=== PATIENT | male | born 1955 | race Caucasian/White ===

== ENCOUNTER 2022-03-29 01:04 | Inpatient (IN) | payer MEDICARE ==
[2022-03-29] MEDS ORDERED: Ondansetron PF 4 MG/2 ML Vial IVP PRN (07:18)
[2022-03-29] MEDS ORDERED: Acetaminophen 325 MG TAB PO PRN (07:18)
[2022-03-29] MEDS ORDERED: Sodium Chloride 0.9% 1,000 ML IV SCH ×2 (07:30→07:55)
[2022-03-29] MEDS ORDERED: Dextrose 5% in Water 1,000 ML IV PRN (07:31)
[2022-03-29] MEDS ORDERED: Dextrose 50% Abboject 50 ML SYRINGE SLOW IVP PRN (07:31)
[2022-03-29] MEDS ORDERED: HumaLOG 300 UNITS/3 ML VIAL SC PRN ×3 (07:31→13:01)
[2022-03-29] MEDS ORDERED: Heparin 25,000 units/D5W 500 ML IVPB SCH (07:45)
[2022-03-29] MEDS ORDERED: Heparin 10,000 UNITS/ 10 ML VIAL SLOW IVP SCH (07:45)
[2022-03-29 08:07] LABS: #Eosinphils 0.1 thou/uL (0.0-0.7); #Lymphocytes 0.9 thou/uL (1.20-3.40); #Monocytes 1.1 thou/uL (0.11-0.59); #Neutrophils 6.4 thou/uL (1.40-6.50); %Basophils 0.4 % (0.0-1.0); %Lymphocytes 10.5 % (21.0-51.0); %Monocytes 12.6 % (0.0-10.0); %Neutrophils 75.6 % (42.0-75.0); Hemoglobin 12.8 g/dL (14.0-18.0); Mean Corpuscular HGB CONC 33.2 g/dL (32.0-36.0); Mean Corpuscular Hemoglobin 29.7 pg (27.0-31.0); Mean Corpuscular Volume 89.5 fl (78.0-98.0); Mean Platelet Volume 8.3 fL (7.4-10.4); Platelet Count 150 10x3/uL (130-400); RBC Distribution Width 12.3 % (11.5-14.5); Red Blood Cell (RBC) Count 4.31 mill/uL (4.70-6.10); White Blood Cell (WBC) Count 8.5 10x3/uL (4.8-10.8)
[2022-03-29] MEDS ORDERED: Heparin 25,000 units/D5W 500 ML IV SCH (08:15)
[2022-03-29 08:28] LABS: Anion Gap 15 mmol/L (10-20); BUN (Urea Nitrogen) 58 mg/dL (8.4-25.7); Calc. Creatinine Clearance 0 mL/min (70-130); Calcium 8.2 mg/dL (7.8-10.44); Carbon Dioxide 23 mmol/L (23-31); Chloride 99 mmol/L (98-107); Estimated GFR 36; Glucose 135 mg/dL (80-115); Potassium 3.6 mmol/L (3.5-5.1); Sodium 133 mmol/L (136-145)
[2022-03-29 08:33] LABS: ALT (SGPT) 29 U/L (8-55); AST (SGOT) 85 U/L (5-34); Albumin 2.9 g/dL (3.4-4.8); Alkaline Phosphatase 45 U/L (40-110); Bilirubin, Direct 0.5 mg/dL (0.1-0.3); Bilirubin, Total 3.2 mg/dL (0.2-1.2); Protein, Total 5.5 g/dL (5.8-8.1)
[2022-03-29 08:34] LABS: Hemoglobin 13.3 g/dL (14.0-18.0); Platelet Count 135 10x3/uL (130-400)
[2022-03-29] MEDS ORDERED: Nitroglycerin 50 MG/250 ML BOT 250 ML IVPB SCH (08:45)
[2022-03-29 08:46] LABS: Troponin I 24.418 ng/mL (< 0.028)
[2022-03-29] MEDS ORDERED: Doxycycline 100 MG in Sodium Chloride 0.9% 100 ML IVPB SCH (09:00)
[2022-03-29] MEDS ORDERED: Furosemide 20 MG/2 ML VIAL SLOW IVP SCH ×2 (09:00→15:00)
[2022-03-29 09:03] LABS: PTT 134.5 sec (22.9-36.1)
[2022-03-29] MEDS: Pantoprazole 40 MG VIAL IVP SCH (09:17)
[2022-03-29] MEDS: Aspirin 81 mg Enteric Coated Tablet PO SCH (09:17)
[2022-03-29 09:35] LABS: Bacteria/HPF None Seen HPF (None Seen); Bilirubin Negative (Negative); Blood, Urine 1+ (Negative); Clarity Clear (Clear); Glucose, Urine (Dipstick) Normal (Negative); Ketone, Urine 10 mg/dL (Negative); Leukocyte 25 Leu/uL (Negative); Nitrite Negative (Negative); Protein, Urine (Dipstick) 20 mg/dL (Neg-Trace); RBC/HPF 0-3 HPF (0-3); Specific Gravity, Urine 1.022 (1.002-1.036); Squamous Epithelial None Seen HPF (0-3); Urobilinogen Normal mg/dL (Less than 2); WBC/HPF 0-3 HPF (0-3)
[2022-03-29] MEDS: hydrALAZINE 25 MG TAB PO SCH ×4 (09:43→20:02)
[2022-03-29] MEDS: Carvedilol 25 MG TAB PO SCH ×3 (09:43→17:15)
[2022-03-29] MEDS: Lorazepam 0.5 MG TAB PO PRN ×2 (15:30→20:03)
[2022-03-29 17:06] LABS: Anion Gap 15 mmol/L (10-20); BUN (Urea Nitrogen) 65 mg/dL (8.4-25.7); Calc. Creatinine Clearance 42 mL/min (70-130); Calcium 8.1 mg/dL (7.8-10.44); Carbon Dioxide 21 mmol/L (23-31); Chloride 100 mmol/L (98-107); Estimated GFR 37; Glucose 171 mg/dL (80-115); Potassium 3.5 mmol/L (3.5-5.1); Sodium 132 mmol/L (136-145)
[2022-03-29 17:22] LABS: Troponin I 22.442 ng/mL (< 0.028)
[2022-03-29] MEDS ORDERED: Carvedilol 25 MG TAB PO SCH (17:30)
[2022-03-29] MEDS: Sodium Chloride 0.9% 1,000 ML IV SCH (18:16)
[2022-03-29] MEDS: Cefepime 2 GM in Sodium Chloride 0.9% 100 ML IVPB SCH (20:03)
[2022-03-29] MEDS ORDERED: Insulin Glargine 30 UNITS/0.3 ML VIAL SC SCH ×2 (21:00)
[2022-03-29] MEDS ORDERED: Rosuvastatin 20 MG TAB PO SCH (21:00)
[2022-03-29] MEDS: Morphine 4 MG/ML VIAL SLOW IVP PRN (23:54)
[2022-03-30] MEDS: Lorazepam 0.5 MG TAB PO PRN ×2 (02:36→08:27)
[2022-03-30] MEDS: Sodium Chloride 0.9% 1,000 ML IV SCH ×2 (03:26→17:35)
[2022-03-30] MEDS: Morphine 4 MG/ML VIAL SLOW IVP PRN ×3 (04:12→16:51)
[2022-03-30 05:54] LABS: #Eosinphils 0.1 thou/uL (0.0-0.7); #Monocytes 0.9 thou/uL (0.11-0.59); #Neutrophils 5.4 thou/uL (1.40-6.50); %Basophils 0.1 % (0.0-1.0); %Eosinophils 1.8 % (0.0-10.0); %Lymphocytes 13.7 % (21.0-51.0); %Monocytes 12.1 % (0.0-10.0); %Neutrophils 72.3 % (42.0-75.0); Hemoglobin 12.2 g/dL (14.0-18.0); Mean Corpuscular HGB CONC 33.3 g/dL (32.0-36.0); Mean Corpuscular Hemoglobin 29.7 pg (27.0-31.0); Mean Corpuscular Volume 89.1 fl (78.0-98.0); Mean Platelet Volume 7.9 fL (7.4-10.4); Platelet Count 135 10x3/uL (130-400); RBC Distribution Width 12.4 % (11.5-14.5); Red Blood Cell (RBC) Count 4.12 mill/uL (4.70-6.10); White Blood Cell (WBC) Count 7.4 10x3/uL (4.8-10.8)
[2022-03-30 06:03] LABS: INR-International Normal Ratio 1.1; Prothrombin Time 15.1 sec (12.0-14.7)
[2022-03-30 06:05] LABS: PTT 100.3 sec (22.9-36.1)
[2022-03-30 06:15] LABS: ALT (SGPT) 23 U/L (8-55); AST (SGOT) 41 U/L (5-34); Albumin 2.7 g/dL (3.4-4.8); Alkaline Phosphatase 46 U/L (40-110); Anion Gap 12 mmol/L (10-20); BUN (Urea Nitrogen) 64 mg/dL (8.4-25.7); Bilirubin, Total 2.1 mg/dL (0.2-1.2); Calc. Creatinine Clearance 44 mL/min (70-130); Calcium 7.8 mg/dL (7.8-10.44); Carbon Dioxide 23 mmol/L (23-31); Chloride 101 mmol/L (98-107); Estimated GFR 39; Globulin 2.4 g/dL (2.4-3.5); Glucose 205 mg/dL (80-115); Potassium 3.6 mmol/L (3.5-5.1); Protein, Total 5.1 g/dL (5.8-8.1); Sodium 132 mmol/L (136-145)
[2022-03-30] MEDS ORDERED: Albumin 5% 500 ML ONE (07:33)
[2022-03-30] MEDS ORDERED: Carvedilol 25 MG TAB PO SCH (08:00)
[2022-03-30] MEDS: Cefepime 2 GM in Sodium Chloride 0.9% 100 ML IVPB SCH ×2 (08:22→20:32)
[2022-03-30] MEDS: Aspirin 81 mg Enteric Coated Tablet PO SCH (08:22)
[2022-03-30] MEDS: Pantoprazole 40 MG VIAL IVP SCH (08:24)
[2022-03-30] MEDS ORDERED: Heparin 10,000 UNITS/1 ML VIAL 30,000 UNITS in Sodium Chloride 0.9% 1,000 ML FS SCH (09:45)
[2022-03-30] MEDS: hydrALAZINE 25 MG TAB PO SCH ×2 (10:17→17:35)
[2022-03-30] MEDS ORDERED: Fentanyl 250 MCG/5 ML VIAL ONE (10:35)
[2022-03-30] MEDS ORDERED: Midazolam HCl 5 mg/5 ml Vial ONE (10:35)
[2022-03-30] MEDS ORDERED: Milrinone 10 MG/10 ML VIAL ONE (10:36)
[2022-03-30] MEDS ORDERED: Dexmedetomidine 200 MCG/2 ML VIAL ONE (10:36)
[2022-03-30] MEDS ORDERED: Vecuronium 10 MG VIAL ONE (11:06)
[2022-03-30] MEDS ORDERED: Cardioplegic Soln 1,000 ML BAG ONE (11:06)
[2022-03-30] MEDS ORDERED: Rocuronium Bromide 10 MG/ML (10ML VIAL) ONE (11:06)
[2022-03-30] MEDS ORDERED: Norepinephrine 4 MG/4 ML VIAL ONE (11:06)
[2022-03-30] MEDS ORDERED: Papaverine 60 MG/2 ML VIAL ONE (11:06)
[2022-03-30] MEDS ORDERED: Sodium Bicarb 50 MEQ/50 ML Abboject 8.4% SYRINGE ONE (11:06)
[2022-03-30] MEDS ORDERED: Heparin 5,000 UNITS/ML VIAL ONE (11:06)
[2022-03-30] MEDS ORDERED: Thrombin 5000 UNITS/5 ML VIAL ONE (11:06)
[2022-03-30] MEDS ORDERED: Albumin 25% 25 GM/100 ML BOT ONE (11:06)
[2022-03-30] MEDS ORDERED: Vancomycin 1 GM VIAL ONE (11:06)
[2022-03-30] MEDS ORDERED: Calcium Chloride 1 GM/10 ML Abboject SYRINGE ONE (11:06)
[2022-03-30] MEDS ORDERED: Aminocaproic Acid 5 GM/20 ML VIAL ONE (11:06)
[2022-03-30] MEDS ORDERED: Mannitol 12.5 GM/50 ML ONE (11:06)
[2022-03-30] MEDS ORDERED: Heparin 30,000 units/30 ml VIAL ONE (11:06)
[2022-03-30] MEDS ORDERED: Potassium Chloride 60 MEQ/30 ML VIAL ONE (11:06)
[2022-03-30] MEDS ORDERED: Lidocaine 2% PF 100 mg/5 ml Syringe ONE (11:06)
[2022-03-30] MEDS ORDERED: Lidocaine 1% PF 5 ML VIAL ONE (11:06)
[2022-03-30] MEDS ORDERED: Protamine Sulfate 250 MG/25 ML VIAL ONE (11:06)
[2022-03-30] MEDS ORDERED: Insulin Regular 300 UNITS/3 ML VIAL ONE (11:50)
[2022-03-30] MEDS ORDERED: PHENYLEPHRINE-NS 100 MCG/ML 10 ML SYRINGE ONE ×2 (12:28→13:23)
[2022-03-30] MEDS ORDERED: EPINEPHrine 1 MG/ML AMP ONE (13:25)
[2022-03-30 16:11] LABS: Hemoglobin 11.2 g/dL (14.0-18.0); Mean Corpuscular Hemoglobin 29.9 pg (27.0-31.0); Mean Corpuscular Volume 87.9 fl (78.0-98.0); Mean Platelet Volume 8.6 fL (7.4-10.4); Platelet Count 80 10x3/uL (130-400); RBC Distribution Width 12.4 % (11.5-14.5); Red Blood Cell (RBC) Count 3.75 mill/uL (4.70-6.10); White Blood Cell (WBC) Count 16.7 10x3/uL (4.8-10.8)
[2022-03-30 16:22] LABS: PTT 37.5 sec (22.9-36.1); Prothrombin Time 23.6 sec (12.0-14.7)
[2022-03-30 16:25] LABS: Band 21 % (5-11); Eosinophils 3 % (0-10); Lymphocytes 2 % (21-51); MDiff Complete? YES; Monocytes 6 % (0-10); Neutrophil 67 % (42-75); Platelet Morphology Comment Appears Decreased; Polychromasia SLIGHT = 2-3 cells (100X) (0-2/hpf)
[2022-03-30] MEDS ORDERED: NOREPINEPHRINE 8 MG/250 ML-D5W 250 ML ONE (16:38)
[2022-03-30] MEDS ORDERED: Nitroglycerin 50 MG/250 ML BOT 250 ML IVPB PRN (16:47)
[2022-03-30] MEDS ORDERED: niCARdipine 25 MG in Sodium Chloride 0.9% 250 ML 250 ML IVPB PRN (16:47)
[2022-03-30] MEDS ORDERED: Bisacodyl 5 MG TAB PO PRN (16:47)
[2022-03-30] MEDS ORDERED: Guaifenesin DM 100-10/5 ML UDCUP PO PRN (16:47)
[2022-03-30] MEDS ORDERED: Ventilator Sedation Protocol 1 EACH FS SCH (16:47)
[2022-03-30] MEDS ORDERED: Mag-Al 1200 mg/1200 mg/30 ML UDCUP PO PRN (16:47)
[2022-03-30] MEDS ORDERED: hydrALAZINE 20 MG/ML VIAL SLOW IVP PRN (16:47)
[2022-03-30] MEDS ORDERED: Acetaminophen 325 MG TAB PO PRN (16:47)
[2022-03-30] MEDS ORDERED: Hetastarch 6% 500 ML 500 ML IVPB PRN (16:47)
[2022-03-30] MEDS ORDERED: Ondansetron PF 4 MG/2 ML Vial IVP PRN (16:47)
[2022-03-30] MEDS ORDERED: NOREPINEPHRINE 8 MG/250 ML-D5W 250 ML IVPB PRN (16:47)
[2022-03-30] MEDS ORDERED: Post-Op Insulin Drip Protocol IVPB ONE (16:47)
[2022-03-30] MEDS ORDERED: Bisacodyl 10 MG SUPP PR PRN (16:47)
[2022-03-30] MEDS ORDERED: DOPamine 400 MG/D5W 250 ML 250 ML IVPB PRN (16:47)
[2022-03-30] MEDS ORDERED: Morphine 4 MG/ML VIAL ONE (16:49)
[2022-03-30 17:00] LABS: #Eosinphils 0.1 thou/uL (0.0-0.7); #Lymphocytes 1.4 thou/uL (1.20-3.40); #Monocytes 1.4 thou/uL (0.11-0.59); #Neutrophils 11.2 thou/uL (1.40-6.50); %Basophils 0.1 % (0.0-1.0); %Lymphocytes 9.7 % (21.0-51.0); %Monocytes 9.7 % (0.0-10.0); %Neutrophils 79.5 % (42.0-75.0); Hemoglobin 11.4 g/dL (14.0-18.0); Mean Corpuscular HGB CONC 33.7 g/dL (32.0-36.0); Mean Corpuscular Hemoglobin 29.5 pg (27.0-31.0); Mean Corpuscular Volume 87.6 fl (78.0-98.0); Mean Platelet Volume 8.7 fL (7.4-10.4); Platelet Count 81 10x3/uL (130-400); RBC Distribution Width 12.4 % (11.5-14.5); Red Blood Cell (RBC) Count 3.87 mill/uL (4.70-6.10); White Blood Cell (WBC) Count 14.1 10x3/uL (4.8-10.8)
[2022-03-30] MEDS ORDERED: Morphine 4 MG/ML VIAL SLOW IVP PRN (17:02)
[2022-03-30] MEDS ORDERED: Midazolam HCl 2 mg/2 ml Vial SLOW IVP PRN (17:05)
[2022-03-30 17:08] LABS: INR-International Normal Ratio 1.7; Prothrombin Time 20.9 sec (12.0-14.7)
[2022-03-30] MEDS ORDERED: Fentanyl CADD 100 ML IV SCH (17:15)
[2022-03-30] MEDS ORDERED: Fentanyl BOLUS 250 ML IVPB PRN (17:15)
[2022-03-30] MEDS ORDERED: Propofol BOLUS 1,000 MG/100 ML VIAL IV PRN (17:15)
[2022-03-30] MEDS ORDERED: HUMULIN R 100 UNITS in Sodium Chloride 0.9% 100 ML IVPB SCH (17:15)
[2022-03-30] MEDS ORDERED: Dextrose 50% Abboject 50 ML SYRINGE SLOW IVP PRN (17:15)
[2022-03-30] MEDS ORDERED: Dextrose 5% in Water 1,000 ML IV PRN (17:15)
[2022-03-30] MEDS ORDERED: DISCONTINUE PREVIOUS NARCOTIC PAIN MEDICATIONS AND BENZODIAZEPINES FS SCH (17:15)
[2022-03-30 17:29] LABS: Anion Gap 14 mmol/L (10-20); BUN (Urea Nitrogen) 54 mg/dL (8.4-25.7); Calc. Creatinine Clearance 58 mL/min (70-130); Calcium 6.5 mg/dL (7.8-10.44); Carbon Dioxide 17 mmol/L (23-31); Chloride 111 mmol/L (98-107); Estimated GFR 55; Glucose 152 mg/dL (80-115); Potassium 3.8 mmol/L (3.5-5.1); Sodium 138 mmol/L (136-145)
[2022-03-30] MEDS: Lactated Ringer's 1,000 ML IV SCH (17:42)
[2022-03-30] MEDS: Propofol 1,000 MG/100 ML VIAL IV PRN (17:42)
[2022-03-30] MEDS ORDERED: Calcium Gluconate 4.6 MEQ in Sodium Chloride 0.9% 100 ML IVPB SCH (17:45)
[2022-03-30] MEDS ORDERED: CALCIUM GLUC 1 GM/NS 50 ML 1 GM in Premix Bag 1 BAG IVPB SCH (18:00)
[2022-03-30] MEDS: Insulin Regular 300 UNITS/3 ML VIAL SC PRN (19:08)
[2022-03-30] MEDS: Famotidine/PF 20 mg/2ml Vial SLOW IVP SCH (20:32)
[2022-03-30 22:53] LABS: Hemoglobin 10.4 g/dL (14.0-18.0)
[2022-03-30 23:23] LABS: Potassium 4.3 mmol/L (3.5-5.1)
[2022-03-31] MEDS: Propofol 1,000 MG/100 ML VIAL IV PRN ×2 (00:46→07:45)
[2022-03-31] MEDS: Morphine 4 MG/ML VIAL SLOW IVP PRN ×4 (02:19→12:55)
[2022-03-31 03:36] LABS: Actual Bicarbonate (HCO3a) 17.7 mEq/L (22-28); Base Excess (BEa) -5.6 mEq/L (-2.0 to +3.0); CO2 Tension 27.6 mmHg (35.0-45.0); Calcium, Ionized (arterial) 1.07 mmol/L (1.12-1.30); Carboxyhemoglobin (COHb) 0.3 gm% (0.0-3.0); Hemoglobin (Hb) 10.6 g/dL (14.0-18.0); O2 Tension (PaO2), arterial 115.7 mmHg (> 80.0); Potassium - ABG Lab 3.99 mmol/L (3.70-5.30); pH, Arterial 7.42 (7.35-7.45)
[2022-03-31 03:38] LABS: Puncture Site Arterial Line
[2022-03-31 04:50] LABS: #Eosinphils 0.1 thou/uL (0.0-0.7); #Lymphocytes 0.8 thou/uL (1.20-3.40); #Monocytes 1.2 thou/uL (0.11-0.59); #Neutrophils 7.8 thou/uL (1.40-6.50); %Basophils 0.2 % (0.0-1.0); %Eosinophils 0.9 % (0.0-10.0); %Lymphocytes 7.8 % (21.0-51.0); %Monocytes 11.7 % (0.0-10.0); %Neutrophils 79.5 % (42.0-75.0); Hemoglobin 10.3 g/dL (14.0-18.0); Mean Corpuscular HGB CONC 34.4 g/dL (32.0-36.0); Mean Corpuscular Hemoglobin 30.5 pg (27.0-31.0); Mean Corpuscular Volume 88.6 fl (78.0-98.0); Mean Platelet Volume 9.7 fL (7.4-10.4); Platelet Count 89 10x3/uL (130-400); RBC Distribution Width 12.6 % (11.5-14.5); Red Blood Cell (RBC) Count 3.39 mill/uL (4.70-6.10); White Blood Cell (WBC) Count 9.9 10x3/uL (4.8-10.8)
[2022-03-31 05:09] LABS: Anion Gap 10 mmol/L (10-20); BUN (Urea Nitrogen) 57 mg/dL (8.4-25.7); Calc. Creatinine Clearance 40 mL/min (70-130); Calcium 7.1 mg/dL (7.8-10.44); Carbon Dioxide 18 mmol/L (23-31); Chloride 111 mmol/L (98-107); Estimated GFR 37; Glucose 130 mg/dL (80-115); Sodium 135 mmol/L (136-145)
[2022-03-31] MEDS: Lactated Ringer's 1,000 ML IV SCH ×3 (05:26→20:11)
[2022-03-31] MEDS ORDERED: DOBUTamine 500 mg/250 ml 250 ML IVPB SCH (07:15)
[2022-03-31] MEDS ORDERED: Furosemide 20 MG/2 ML VIAL SLOW IVP SCH (09:15)
[2022-03-31] MEDS: Magnesium 2 GM/50 ML(in water) 2 GM in Premix Bag 1 BAG IVPB SCH (09:29)
[2022-03-31] MEDS: Cefepime 2 GM in Sodium Chloride 0.9% 100 ML IVPB SCH ×2 (09:29→20:59)
[2022-03-31] MEDS: Aspirin 325 MG TAB PO SCH (09:30)
[2022-03-31] MEDS: Insulin Regular 300 UNITS/3 ML VIAL SC PRN ×3 (11:20→20:54)
[2022-03-31] MEDS ORDERED: HYDROcodone/Acetaminophen 5/325 mg Tablet PO PRN ×2 (14:18)
[2022-03-31] MEDS: FENTANYL 50 MCG/ML 1 ML VIAL SLOW IVP PRN ×3 (15:14→22:39)
[2022-03-31] MEDS ORDERED: Albuterol Sulfate 2.5 mg/3 ml Neb ONE (18:17)
[2022-03-31] MEDS: Famotidine/PF 20 mg/2ml Vial SLOW IVP SCH (21:00)
[2022-04-01] MEDS: Insulin Regular 300 UNITS/3 ML VIAL SC PRN ×6 (01:55→21:18)
[2022-04-01 04:40] LABS: #Lymphocytes 0.8 thou/uL (1.20-3.40); #Monocytes 1.7 thou/uL (0.11-0.59); #Neutrophils 12.8 thou/uL (1.40-6.50); %Basophils 0.1 % (0.0-1.0); %Eosinophils 0.2 % (0.0-10.0); %Lymphocytes 5.3 % (21.0-51.0); %Neutrophils 83.5 % (42.0-75.0); Hemoglobin 10.9 g/dL (14.0-18.0); Mean Corpuscular Hemoglobin 30.7 pg (27.0-31.0); Mean Corpuscular Volume 90.4 fl (78.0-98.0); Mean Platelet Volume 9.4 fL (7.4-10.4); Platelet Count 117 10x3/uL (130-400); Red Blood Cell (RBC) Count 3.55 mill/uL (4.70-6.10); White Blood Cell (WBC) Count 15.3 10x3/uL (4.8-10.8)
[2022-04-01 05:06] LABS: Anion Gap 18 mmol/L (10-20); BUN (Urea Nitrogen) 60 mg/dL (8.4-25.7); Calc. Creatinine Clearance 43 mL/min (70-130); Carbon Dioxide 16 mmol/L (23-31); Chloride 106 mmol/L (98-107); Estimated GFR 39; Glucose 314 mg/dL (80-115); Potassium 4.4 mmol/L (3.5-5.1); Sodium 136 mmol/L (136-145)
[2022-04-01] MEDS: Cefepime 2 GM in Sodium Chloride 0.9% 100 ML IVPB SCH (09:16)
[2022-04-01] MEDS: Insulin Glargine 30 UNITS/0.3 ML VIAL SC SCH ×2 (09:17→21:19)
[2022-04-01] MEDS: Sodium Bicarbonate Tab 325 MG TAB PO SCH ×3 (09:21→21:07)
[2022-04-01] MEDS: Aspirin 325 MG TAB PO SCH (09:21)
[2022-04-01] MEDS: Magnesium 2 GM/50 ML(in water) 2 GM in Premix Bag 1 BAG IVPB SCH (09:21)
[2022-04-01] MEDS ORDERED: SODIUM CHLORIDE 0.9% IVPB SCH (11:30)
[2022-04-01] MEDS ORDERED: DOBUTAMINE IVPB SCH (11:30)
[2022-04-01] MEDS ORDERED: Furosemide 20 MG/2 ML VIAL SLOW IVP SCH (12:45)
[2022-04-01] MEDS ORDERED: Albuterol Sulfate 2.5 mg/0.5 ml Neb ONE (13:02)
[2022-04-01] MEDS ORDERED: Mineral Oil ENEMA PR PRN (14:26)
[2022-04-01] MEDS ORDERED: Nitroglycerin 0.4 MG TAB (25 Tab Bottle) SL PRN (14:26)
[2022-04-01] MEDS ORDERED: Potassium Chloride 10 MEQ TAB PO SCH (15:15)
[2022-04-01] MEDS ORDERED: Dextrose 50% Abboject 50 ML SYRINGE SLOW IVP PRN (15:15)
[2022-04-01] MEDS ORDERED: Furosemide 40 MG TAB PO SCH (15:15)
[2022-04-01] MEDS ORDERED: HUMULIN R 100 UNITS in Sodium Chloride 0.9% 100 ML IVPB SCH (15:15)
[2022-04-01] MEDS ORDERED: Polyethylene Glycol 3350 17 GM Packet PO SCH (15:15)
[2022-04-01] MEDS ORDERED: Dextrose 5% in Water 1,000 ML IV PRN (15:15)
[2022-04-01] MEDS ORDERED: Famotidine 20 MG TAB PO SCH (15:15)
[2022-04-01] MEDS ORDERED: HYDROcodone/Acetaminophen 5/325 mg Tablet PO PRN (15:42)
[2022-04-01] MEDS: HYDROcodone/Acetaminophen 5/325 mg Tablet PO PRN ×2 (16:09→21:06)
[2022-04-01] MEDS: Enoxaparin Sodium 30 MG/0.3 ML SYRINGE SC SCH (21:06)
[2022-04-01] MEDS: Atorvastatin Calcium 40 MG TAB PO SCH (21:07)
[2022-04-02] MEDS: HYDROcodone/Acetaminophen 5/325 mg Tablet PO PRN ×3 (01:06→19:47)
[2022-04-02] MEDS: FENTANYL 50 MCG/ML 1 ML VIAL SLOW IVP PRN (03:56)
[2022-04-02 05:25] LABS: Anion Gap 15 mmol/L (10-20); BUN (Urea Nitrogen) 58 mg/dL (8.4-25.7); Calc. Creatinine Clearance 46 mL/min (70-130); Calcium 8.4 mg/dL (7.8-10.44); Carbon Dioxide 21 mmol/L (23-31); Chloride 103 mmol/L (98-107); Estimated GFR 43; Glucose 177 mg/dL (80-115); Potassium 3.8 mmol/L (3.5-5.1); Sodium 135 mmol/L (136-145)
[2022-04-02] MEDS: Insulin Regular 300 UNITS/3 ML VIAL SC PRN ×2 (06:05→18:10)
[2022-04-02 07:20] LABS: Band 14 % (5-11); Eosinophils 1 % (0-10); Hemoglobin 11.4 g/dL (14.0-18.0); Lymphocytes 10 % (21-51); MDiff Complete? YES; Mean Corpuscular HGB CONC 34.6 g/dL (32.0-36.0); Mean Corpuscular Hemoglobin 30.9 pg (27.0-31.0); Mean Corpuscular Volume 89.5 fl (78.0-98.0); Mean Platelet Volume 9.3 fL (7.4-10.4); Monocytes 7 % (0-10); Neutrophil 68 % (42-75); Platelet Count 170 10x3/uL (130-400); RBC Distribution Width 13.1 % (11.5-14.5); Red Blood Cell (RBC) Count 3.69 mill/uL (4.70-6.10); White Blood Cell (WBC) Count 19.8 10x3/uL (4.8-10.8)
[2022-04-02] MEDS ORDERED: Carvedilol 3.125 MG TAB PO SCH ×2 (08:00→08:04)
[2022-04-02] MEDS ORDERED: Furosemide 40 MG TAB PO SCH (09:00)
[2022-04-02] MEDS: Carvedilol 6.25 MG TAB PO SCH ×2 (10:33→18:07)
[2022-04-02] MEDS: Potassium Chloride 10 MEQ TAB PO SCH (10:35)
[2022-04-02] MEDS: Famotidine 20 MG TAB PO SCH (10:37)
[2022-04-02] MEDS: Aspirin 325 MG TAB PO SCH (10:37)
[2022-04-02] MEDS: cefTRIAXone\\ROCEPHIN 1 GM in Sodium Chloride 0.9% 100 ML IVPB SCH (10:39)
[2022-04-02] MEDS: Insulin Glargine 30 UNITS/0.3 ML VIAL SC SCH ×2 (10:39→19:48)
[2022-04-02] MEDS: Polyethylene Glycol 3350 17 GM Packet PO SCH (10:44)
[2022-04-02] MEDS ORDERED: Polyethylene Glycol 3350 17 GM Packet PO PRN (14:09)
[2022-04-02] MEDS ORDERED: Insulin Glargine 30 UNITS/0.3 ML VIAL SC PRN (15:07)
[2022-04-02] MEDS: Furosemide 40 MG TAB PO SCH (16:58)
[2022-04-02] MEDS: Lisinopril 10 MG TAB PO SCH (19:47)
[2022-04-02] MEDS: Atorvastatin Calcium 40 MG TAB PO SCH (19:48)
[2022-04-02] MEDS: Enoxaparin Sodium 30 MG/0.3 ML SYRINGE SC SCH (19:48)
[2022-04-03] MEDS ORDERED: Furosemide 40 MG TAB PO SCH (00:15)
[2022-04-03] MEDS: HYDROcodone/Acetaminophen 5/325 mg Tablet PO PRN ×3 (03:10→20:42)
[2022-04-03 06:04] LABS: #Eosinphils 0.2 thou/uL (0.0-0.7); #Lymphocytes 1.6 thou/uL (1.20-3.40); #Neutrophils 12.9 thou/uL (1.40-6.50); %Basophils 0.1 % (0.0-1.0); %Eosinophils 1.2 % (0.0-10.0); %Lymphocytes 9.8 % (21.0-51.0); %Monocytes 11.9 % (0.0-10.0); %Neutrophils 77.1 % (42.0-75.0); Hemoglobin 11.3 g/dL (14.0-18.0); Mean Corpuscular HGB CONC 33.3 g/dL (32.0-36.0); Mean Corpuscular Hemoglobin 30.3 pg (27.0-31.0); Mean Platelet Volume 9.6 fL (7.4-10.4); Platelet Count 272 10x3/uL (130-400); RBC Distribution Width 13.5 % (11.5-14.5); Red Blood Cell (RBC) Count 3.73 mill/uL (4.70-6.10); White Blood Cell (WBC) Count 16.7 10x3/uL (4.8-10.8)
[2022-04-03 06:16] LABS: ALT (SGPT) 27 U/L (8-55); AST (SGOT) 30 U/L (5-34); Albumin 2.8 g/dL (3.4-4.8); Alkaline Phosphatase 81 U/L (40-110); Anion Gap 13 mmol/L (10-20); BUN (Urea Nitrogen) 58 mg/dL (8.4-25.7); Bilirubin, Total 1.6 mg/dL (0.2-1.2); Calc. Creatinine Clearance 49 mL/min (70-130); Calcium 8.1 mg/dL (7.8-10.44); Carbon Dioxide 25 mmol/L (23-31); Chloride 99 mmol/L (98-107); Estimated GFR 47; Globulin 2.6 g/dL (2.4-3.5); Glucose 122 mg/dL (80-115); Magnesium 2.8 mg/dL (1.6-2.6); Potassium 3.6 mmol/L (3.5-5.1); Protein, Total 5.4 g/dL (5.8-8.1); Sodium 133 mmol/L (136-145)
[2022-04-03] MEDS: Insulin Regular 300 UNITS/3 ML VIAL SC PRN (06:41)
[2022-04-03] MEDS ORDERED: Morphine 4 MG/ML VIAL SLOW IVP SCH (07:00)
[2022-04-03] MEDS: Carvedilol 6.25 MG TAB PO SCH ×2 (09:01→18:08)
[2022-04-03] MEDS: Potassium Chloride 10 MEQ TAB PO SCH (09:02)
[2022-04-03] MEDS: Aspirin 325 MG TAB PO SCH (09:02)
[2022-04-03] MEDS: Famotidine 20 MG TAB PO SCH (09:02)
[2022-04-03] MEDS: Furosemide 40 MG TAB PO SCH ×2 (09:02→18:08)
[2022-04-03] MEDS: Polyethylene Glycol 3350 17 GM Packet PO SCH (09:03)
[2022-04-03] MEDS: Insulin Glargine 30 UNITS/0.3 ML VIAL SC SCH ×2 (09:03→20:43)
[2022-04-03] MEDS: cefTRIAXone\\ROCEPHIN 1 GM in Sodium Chloride 0.9% 100 ML IVPB SCH (12:16)
[2022-04-03] MEDS: Nystatin 500,000 UNITS/5 ML UDCUP SSW SCH ×3 (12:24→20:42)
[2022-04-03] MEDS: Enoxaparin Sodium 30 MG/0.3 ML SYRINGE SC SCH (20:42)
[2022-04-03] MEDS: Atorvastatin Calcium 40 MG TAB PO SCH (20:42)
[2022-04-03] MEDS: Lisinopril 10 MG TAB PO SCH (20:43)
[2022-04-03] MEDS: Melatonin 3 MG TAB PO PRN (20:43)
[2022-04-03] MEDS ORDERED: hydrOXYzine 25 MG TAB PO SCH (21:00)
[2022-04-04 09:33] LABS: #Basophils 0.1 thou/uL (0.0-0.2); #Eosinphils 0.3 thou/uL (0.0-0.7); #Lymphocytes 1.5 thou/uL (1.20-3.40); #Monocytes 1.5 thou/uL (0.11-0.59); #Neutrophils 10.6 thou/uL (1.40-6.50); %Basophils 0.4 % (0.0-1.0); %Eosinophils 1.8 % (0.0-10.0); %Lymphocytes 10.6 % (21.0-51.0); %Monocytes 10.6 % (0.0-10.0); %Neutrophils 76.6 % (42.0-75.0); Mean Corpuscular HGB CONC 32.8 g/dL (32.0-36.0); Mean Corpuscular Hemoglobin 30.2 pg (27.0-31.0); Mean Platelet Volume 9.2 fL (7.4-10.4); Platelet Count 351 10x3/uL (130-400); RBC Distribution Width 13.6 % (11.5-14.5); Red Blood Cell (RBC) Count 3.96 mill/uL (4.70-6.10); White Blood Cell (WBC) Count 13.8 10x3/uL (4.8-10.8)
[2022-04-04] MEDS: Insulin Glargine 30 UNITS/0.3 ML VIAL SC SCH (09:36)
[2022-04-04 09:59] LABS: Anion Gap 17 mmol/L (10-20); BUN (Urea Nitrogen) 55 mg/dL (8.4-25.7); Calc. Creatinine Clearance 54 mL/min (70-130); Calcium 8.4 mg/dL (7.8-10.44); Carbon Dioxide 20 mmol/L (23-31); Chloride 99 mmol/L (98-107); Estimated GFR 52; Glucose 235 mg/dL (80-115); Potassium 3.9 mmol/L (3.5-5.1); Sodium 132 mmol/L (136-145)
[2022-04-04] MEDS ORDERED: Insulin Glargine 30 UNITS/0.3 ML VIAL SC SCH ×2 (10:00→21:00)
[2022-04-04] MEDS ORDERED: Bisacodyl 5 MG TAB PO SCH (10:00)
[2022-04-04] MEDS ORDERED: GoLYTELY 4,000 ml Bottle PO SCH (10:00)
[2022-04-04] MEDS: Aspirin 325 MG TAB PO SCH (11:15)
[2022-04-04] MEDS: Furosemide 40 MG TAB PO SCH ×2 (11:15→14:04)
[2022-04-04] MEDS: Famotidine 20 MG TAB PO SCH (11:15)
[2022-04-04] MEDS: Carvedilol 6.25 MG TAB PO SCH ×2 (11:15→17:35)
[2022-04-04] MEDS: Potassium Chloride 10 MEQ TAB PO SCH (11:15)
[2022-04-04] MEDS: Polyethylene Glycol 3350 17 GM Packet PO SCH (11:16)
[2022-04-04] MEDS: Nystatin 500,000 UNITS/5 ML UDCUP SSW SCH ×4 (11:16→20:56)
[2022-04-04] MEDS: cefTRIAXone\\ROCEPHIN 1 GM in Sodium Chloride 0.9% 100 ML IVPB SCH (11:21)
[2022-04-04] MEDS: Insulin Regular 300 UNITS/3 ML VIAL SC PRN (11:34)
[2022-04-04] MEDS: HYDROcodone/Acetaminophen 5/325 mg Tablet PO PRN (14:02)
[2022-04-04 16:37] VITALS: BMI 27.4
[2022-04-04] MEDS: Enoxaparin Sodium 30 MG/0.3 ML SYRINGE SC SCH (20:56)
[2022-04-04] MEDS: Atorvastatin Calcium 40 MG TAB PO SCH (20:56)
[2022-04-04] MEDS: Lisinopril 10 MG TAB PO SCH (20:56)
[2022-04-04] MEDS: Melatonin 3 MG TAB PO PRN (21:21)
[2022-04-05] MEDS: HYDROcodone/Acetaminophen 5/325 mg Tablet PO PRN ×2 (00:23→10:27)
[2022-04-05] MEDS ORDERED: Loperamide HCl 2 MG CAP PO PRN (02:16)
[2022-04-05 05:23] LABS: Anion Gap 13 mmol/L (10-20); BUN (Urea Nitrogen) 50 mg/dL (8.4-25.7); Calc. Creatinine Clearance 56 mL/min (70-130); Calcium 8.1 mg/dL (7.8-10.44); Carbon Dioxide 25 mmol/L (23-31); Chloride 100 mmol/L (98-107); Estimated GFR 55; Potassium 3.5 mmol/L (3.5-5.1); Sodium 134 mmol/L (136-145)
[2022-04-05 06:09] LABS: Glucose 42 mg/dL (80-115)
[2022-04-05] MEDS ORDERED: Insulin Glargine 30 UNITS/0.3 ML VIAL SC SCH (09:00)
[2022-04-05] MEDS: Famotidine 20 MG TAB PO SCH (10:07)
[2022-04-05] MEDS: Aspirin 325 MG TAB PO SCH (10:07)
[2022-04-05] MEDS: Potassium Chloride 10 MEQ TAB PO SCH (10:07)
[2022-04-05] MEDS: Furosemide 40 MG TAB PO SCH (10:08)
[2022-04-05] MEDS: Carvedilol 6.25 MG TAB PO SCH (10:08)
[2022-04-05] MEDS: Nystatin 500,000 UNITS/5 ML UDCUP SSW SCH ×2 (10:10→12:21)
[2022-04-05] MEDS: Polyethylene Glycol 3350 17 GM Packet PO SCH (10:10)
[2022-04-05] MEDS: cefTRIAXone\\ROCEPHIN 1 GM in Sodium Chloride 0.9% 100 ML IVPB SCH (10:18)
[2022-04-05 12:33] VITALS: BP 142/70; TEMP 98.6
[2022-04-05] MEDS ORDERED: Lisinopril 10 MG TAB PO SCH (21:00)
== END 2022-04-05 14:20 | disposition home or self-care (01) | DRG 235 ==
LOC: CCU 06:50 → 2NO 04-01 19:56
PROVIDERS: ADMIT Internal Medicine; ATTEND Internal Medicine
PROC: 02100Z9 Bypass Coronary Artery, One Artery from Left Internal Mammary, Open Approach (ICD-10-PCS; principal; 2022-03-30)
PROC: 021209W Bypass Coronary Artery, Three Arteries from Aorta with Autologous Venous Tissue, Open Approach (ICD-10-PCS; 2022-03-30)
PROC: 06BQ4ZZ Excision of Left Saphenous Vein, Percutaneous Endoscopic Approach (ICD-10-PCS; 2022-03-30)
PROC: 02PA0RZ Removal of Short-term External Heart Assist System from Heart, Open Approach (ICD-10-PCS; 2022-03-30)
PROC: 3E043XZ Introduction of Vasopressor into Central Vein, Percutaneous Approach (ICD-10-PCS; 2022-03-30)
PROC: 30233K1 Transfusion of Nonautologous Frozen Plasma into Peripheral Vein, Percutaneous Approach (ICD-10-PCS; 2022-03-30)
PROC: 30233N1 Transfusion of Nonautologous Red Blood Cells into Peripheral Vein, Percutaneous Approach (ICD-10-PCS; 2022-03-30)
PROC: 6A550Z2 Pheresis of Platelets, Single (ICD-10-PCS; 2022-03-30)
PROC: 02L70CK Occlusion of Left Atrial Appendage with Extraluminal Device, Open Approach (ICD-10-PCS; 2022-03-30)
PROC: 5A0935A Assistance with Respiratory Ventilation, Less than 24 Consecutive Hours, High Flow/Velocity Cannula (ICD-10-PCS; 2022-03-30)
DX: I13.0 Hypertensive heart and chronic kidney disease with heart failure and stage 1 through stage 4 chronic kidney disease, or unspecified chronic kidney disease (principal); I21.A1 Myocardial infarction type 2; I50.23 Acute on chronic systolic (congestive) heart failure; J96.01 Acute respiratory failure with hypoxia; J18.9 Pneumonia, unspecified organism; R57.0 Cardiogenic shock; N17.9 Acute kidney failure, unspecified; E87.20 Acidosis, unspecified; E87.1 Hypo-osmolality and hyponatremia; B37.0 Candidal stomatitis; I25.10 Atherosclerotic heart disease of native coronary artery without angina pectoris; I25.5 Ischemic cardiomyopathy; E10.51 Type 1 diabetes mellitus with diabetic peripheral angiopathy without gangrene; E78.5 Hyperlipidemia, unspecified; R94.5 Abnormal results of liver function studies; R13.10 Dysphagia, unspecified; R79.89 Other specified abnormal findings of blood chemistry; N18.30 Chronic kidney disease, stage 3 unspecified; E10.22 Type 1 diabetes mellitus with diabetic chronic kidney disease; D63.1 Anemia in chronic kidney disease; E87.5 Hyperkalemia; Z78.1 Physical restraint status; Z79.82 Long term (current) use of aspirin; Z82.49 Family history of ischemic heart disease and other diseases of the circulatory system; Z83.3 Family history of diabetes mellitus; Z79.899 Other long term (current) drug therapy; Z79.4 Long term (current) use of insulin
CPT/HCPCS: 36415; 36416; 36430; 71045; 76770; 80048; 80053; 81001; 82805; 83735; 84484; 85025; 85347; 85384; 85610; 85730; 86850; 86900; 86901; 93005; 93010; 93306; 93798; 94002; 94003; 94150; 94640; C1751; C1776; C9113; J0171; J0610; J0692; J0696; J1250; J1265; J1644; J1650; J1815; J1940; J2001; J2150; J2250; J2260; J2270; J2405; J2440; J2704; J2720; J3010; J3370; J3475; J3480; J3490; J7050; J7070; J7120; J7611; J7620; P9016; P9035; P9045; P9047; P9059; S0017; S0028

== ENCOUNTER 2022-11-08 10:53 | Day surgery (SDC) | payer MEDICARE ==
[2022-11-07 09:55] VITALS: BMI 24.2
[2022-11-08] MEDS ORDERED: Iopamidol 30 ML ONE (12:53)
[2022-11-08] MEDS ORDERED: Indomethacin 50 MG SUPP ONE (12:54)
[2022-11-08] MEDS ORDERED: LevoFLOXacin 500 mg/D5W 100 ML BAG ONE (13:13)
[2022-11-08] MEDS ORDERED: fentaNYL 50 mcg/mL 1 mL Vial ONE ×2 (13:18→13:19)
[2022-11-08] MEDS ORDERED: SUGAMMADEX SODIUM 200 MG/2 ML VIAL ONE (13:19)
[2022-11-08] MEDS ORDERED: Ondansetron PF 4 MG/2 ML Vial ONE (13:31)
[2022-11-08] MEDS ORDERED: PROPOFOL 200 MG/20 ML VIAL ONE (13:31)
[2022-11-08] MEDS ORDERED: Rocuronium Bromide 10 MG/ML (10ML VIAL) ONE (13:31)
[2022-11-08] MEDS ORDERED: Lidocaine 1% PF 5 ML VIAL ONE (13:31)
[2022-11-08] MEDS ORDERED: Labetalol HCl 100 MG/20 ML VIAL ONE (15:16)
== END 2022-11-08 16:38 | disposition home or self-care (01) ==
LOC: SDC 10:53
PROVIDERS: ATTEND Internal Medicine Gastroenterology
PROC: 0F798ZZ Dilation of Common Bile Duct, Via Natural or Artificial Opening Endoscopic (ICD-10-PCS; principal; 2022-11-08)
DX: K80.50 Calculus of bile duct without cholangitis or cholecystitis without obstruction (principal); I25.10 Atherosclerotic heart disease of native coronary artery without angina pectoris; E11.9 Type 2 diabetes mellitus without complications; I10 Essential (primary) hypertension; Z79.899 Other long term (current) drug therapy; Z95.5 Presence of coronary angioplasty implant and graft; Z88.1 Allergy status to other antibiotic agents; Z88.2 Allergy status to sulfonamides
CPT/HCPCS: 43262; 74330; 82962; J3010; 36416; J1956; J2405; J2704; Q9967